=== PATIENT | female | born 1955 | race Caucasian/White ===

== ENCOUNTER 2016-05-01 06:38 | Day surgery (SDC) | payer MEDICARE, OTHER ==
[2016-04-27 11:21] VITALS: BMI 51.3
[~2016-05-01 06:38] MED LIST: LACTATED RINGERS 1,000 ML IV SCH; LIDOCAINE 1% 20 ML VIAL (10MG/ML) FOR IV START INTRADERMA PRN
[2016-05-01] MEDS ORDERED: LACTATED RINGERS 1,000 ML IV ONE (06:53)
[2016-05-01 07:07] VITALS: TEMP 98
[2016-05-01] MEDS ORDERED: PROPOFOL 10 MG/ML 20 ML VIAL IV ONE (08:15)
--- NOTE | 2016-05-01 08:31 | P.GSHP ---
History of Present Illness H&P Date: 05/01/16 Chief Complaint: Diverticulitis, screening colonoscopy This a 61-year-old female who presents today for colonoscopy. Patient's pain has History of diverticulitis. - Constitutional Constitutional: Reports as per HPI Past Medical History Past Medical History: Asthma, Cancer, COPD, Hypertension, Osteoarthritis (OA), Pneumonia, Seizure Disorder Additional Past Medical History / Comment(s): Diverticlitis with abd. pain, 2 weeks ago.Hx colon polyps. Basal cell CA.HX SEIZURE ON LT SIDE OF FACE(last seiz 2 yrs ago)/TRIGIMINAL NEURALGIA/CLUSTER REZA. O2 PRN."Pneumonia yearly". History of Any Multi-Drug Resistant Organisms: None Reported Past Surgical History: Appendectomy, Section, Cholecystectomy, Hysterectomy, Orthopedic Surgery Additional Past Surgical History / Comment(s): Multiple colonoscopies. Prior bronchoscopy. Skin CA removed. RT KNEE replacement, NECK FUSION,RT SHOULDER ROTATOR CUFF. Obie carpal tunnel, bone spurs removed from heels. Past Anesthesia/Blood Transfusion Reactions: Family History of Problems w/ Anesthesia Additional Past Anesthesia/Blood Transfusion Reaction / Comment(s): MOTHER/ SISTER PONV Past Psychological History: Panic Disorder Smoking Status: Former smoker Past Alcohol Use History: None Reported Additional Past Alcohol Use History / Comment(s): quit smoking 12/2014, smoked 1PPD for about 41 yrs. Started smoking 1975. Past Drug Use History: None Reported - Past Family History Mother Family Medical History: Cancer Additional Family Medical History / Comment(s): Skin CA. Father Family Medical History: Cancer Additional Family Medical History / Comment(s): Colon CA. Medications and Allergies Home Medications Medication Instructions Recorded Confirmed Type Albuterol Inhaler [Ventolin Hfa 2 puff INHALATION Q4HR PRN 12/08/13 05/01/16 History Inhaler] Fluticasone/Salmeterol [Advair 2 puff INHALATION BID 12/08/13 05/01/16 History 500-50 Diskus] Furosemide [Lasix] 20 mg PO Q8HR PRN 12/08/13 05/01/16 History Ipratropium/Albuterol Sulfate 1 applicate INHALATION Q4HR PRN 12/08/13 05/01/16 History [Duoneb 0.5 mg-3 mg/3 ml Soln] ALPRAZolam [Xanax] 0.5 mg PO Q8HR PRN 04/27/16 05/01/16 History Budesonide [Pulmicort Flexhaler] 2 puff INHALATION BID 04/27/16 05/01/16 History Tiotropium 18 Mcg/Puff [Spiriva] 1 puff INHALATION QAM 04/27/16 05/01/16 History Allergies Allergy/AdvReac Type Severity Reaction Status Date / Time aspirin Allergy Swelling Verified 05/01/16 06:59 azithromycin Allergy Rash/Hives Verified 05/01/16 06:59 [From Zithromax Z-Dimitris] cefuroxime axetil Allergy SEVERE Verified 05/01/16 06:59 [From Ceftin] YEAST INFECTION metoprolol Allergy Swelling Verified 05/01/16 06:59 Surgical - Exam Vital Signs Temp Pulse Resp BP Pulse Ox 98.0 F 95 16 122/79 95 05/01/16 07:03 05/01/16 07:03 05/01/16 07:03 05/01/16 07:03 05/01/16 07:03 - General well developed, no distress - Eyes PERRL - ENT normal pinna - Neck no masses - Respiratory normal expansion - Cardiovascular Rhythm: regular - Abdomen Abdomen: soft, non tender Assessment and Plan Plan: History of diverticulitis. We'll perform screening colonoscopy.
--- NOTE | 2016-05-01 08:43 | P.OP ---
Date of Procedure: 05/01/16 Preoperative Diagnosis: Screening colonoscopy Postoperative Diagnosis: Diverticulitis Rectal polyp Procedure(s) Performed: Colonoscopy Anesthesia: MAC Surgeon: Mike Romo Pathology: other (Rectal polyp) Condition: stable Disposition: PACU Description of Procedure: The patient's placed on the endoscopy table in the lateral position. She received IV sedation. Digital rectal exam was performed which revealed external hemorrhoids. The flexible colonoscope was then placed patient anus and passed throughout the entire colon. The ileocecal valve was visualized. The cecum, ascending and transverse colon appeared normal. In the descending and sigmoid colon there is extensive diverticular changes. In the sigmoid colon there is evidence of diverticulitis. This area is biopsied. The scope was then brought back the rectum and a small polyp was seen. The scope was then withdrawn and internal and external hemorrhoids were noted. Scope was withdrawn for patient.
[2016-05-01 08:47] VITALS: RESP 18
[2016-05-01 09:23] VITALS: BP 136/89; PULSE 95
== END 2016-05-01 09:40 | disposition home or self-care (01) ==
LOC: ORWHC2ENDO 06:38
PROVIDERS: ATTEND Surgery
DX: Z12.11 Encounter for screening for malignant neoplasm of colon (principal); K62.1 Rectal polyp; K57.92 Diverticulitis of intestine, part unspecified, without perforation or abscess without bleeding; K64.8 Other hemorrhoids; K64.4 Residual hemorrhoidal skin tags; J44.9 Chronic obstructive pulmonary disease, unspecified; J45.909 Unspecified asthma, uncomplicated; Z87.891 Personal history of nicotine dependence; F41.0 Panic disorder [episodic paroxysmal anxiety]; Z79.51 Long term (current) use of inhaled steroids; Z79.899 Other long term (current) drug therapy; Z88.6 Allergy status to analgesic agent; Z88.1 Allergy status to other antibiotic agents; E66.01 Morbid (severe) obesity due to excess calories; Z68.43 Body mass index [BMI] 50.0-59.9, adult
CPT/HCPCS: 45380; 88305

== ENCOUNTER 2016-08-02 05:48 | Inpatient (IN) | payer MEDICARE, OTHER ==
[2016-07-31 11:07] VITALS: BMI 53.1
[~2016-08-02 05:48] MED LIST changes: +DEXAMETHASONE SOD PHOSPHATE 10 MG/ML 1 ML VIAL IV ONE; +HEPARIN SODIUM,PORCINE 5,000 UNIT/ML 1 ML VIAL SQ ONE; -LACTATED RINGERS 1,000 ML IV SCH; +MIDAZOLAM 2 MG/2 ML VIAL IV PRN; +ONDANSETRON 4 MG/2 ML VIAL IVP ONE; +SCOPOLAMINE 1.5MG/72HR PATCH TRANSDERM ONE; +ceFAZolin 3 GM in SODIUM CHLORIDE 0.9% 100 ML IVPB ONE; +metroNIDAZOLE-NS PMX 500 MG in SALINE 1 100ML.BAG IVPB ONE
[2016-08-02] MEDS: LACTATED RINGERS 1,000 ML IV SCH (06:33)
[2016-08-02 06:38] LABS: Glucose,Whole Blood 88 mg/dL (75-99)
[2016-08-02] MEDS ORDERED: HYDROCORTISONE SUCCINATE 100 MG/2 ML VIAL IV ONE (07:00)
--- NOTE | 2016-08-02 07:51 | P.GSHP ---
History of Present Illness H&P Date: 08/02/16 Chief Complaint: Diverticulitis This is a 61-year-old female who presents today for low anterior resection. Patient's had issues with chronic diverticulitis. She is aware the risks of surgery including colostomy, bleeding and wound infection. - Constitutional Constitutional: Reports as per HPI Past Medical History Past Medical History: Asthma, Cancer, COPD, Hypertension, Osteoarthritis (OA), Pneumonia, Seizure Disorder Additional Past Medical History / Comment(s): DIVERTICULITIS. Hx colon polyps. SKIN Basal cell CA FACE. HX SEIZURE ON LT SIDE OF FACE (last seiz 2 yrs ago)/ TRIGIMINAL NEURALGIA/CLUSTER REZA. O2 2L NC AT HS, AND DAILY PRN. "Pneumonia yearly," LAST 06/22/16. TO ER 07/29/16 D/T INCR COPD SX, ON PO AB AND STEROID - PATIENT CALLED AND REPORTED THIS TO DR POWELL'S OFFICE. History of Any Multi-Drug Resistant Organisms: None Reported Past Surgical History: Appendectomy, Section, Cholecystectomy, Hysterectomy, Orthopedic Surgery Additional Past Surgical History / Comment(s): Multiple colonoscopies. Bronchoscopy. Skin CA removed. RT KNEE Replacement. NECK FUSION. RT SHOULDER ROTATOR CUFF. Obie CTR. Bone spurs removed from Heels. LT 5TH TOE AMPUTATED. Past Anesthesia/Blood Transfusion Reactions: No Reported Reaction, Family History of Problems w/ Anesthesia Additional Past Anesthesia/Blood Transfusion Reaction / Comment(s): MOTHER/ SISTER PONV Past Psychological History: Panic Disorder Smoking Status: Former smoker Past Alcohol Use History: None Reported Additional Past Alcohol Use History / Comment(s): Quit smoking 12/2014, smoked 1PPD for about 41 yrs. Started smoking 1975. Past Drug Use History: None Reported - Past Family History Mother Family Medical History: Cancer Additional Family Medical History / Comment(s): Skin CA, MELANOMA. Father Family Medical History: Cancer Additional Family Medical History / Comment(s): Colon CA. Medications and Allergies Home Medications Medication Instructions Recorded Confirmed Type Albuterol Inhaler [Ventolin Hfa 2 puff INHALATION Q4HR PRN 12/08/13 08/02/16 History Inhaler] Fluticasone/Salmeterol [Advair 2 puff INHALATION BID 12/08/13 08/02/16 History 500-50 Diskus] Furosemide [Lasix] 20 mg PO Q8HR PRN 12/08/13 08/02/16 History Ipratropium/Albuterol Sulfate 1 applicate INHALATION Q4HR PRN 12/08/13 08/02/16 History [Duoneb 0.5 mg-3 mg/3 ml Soln] ALPRAZolam [Xanax] 0.5 mg PO Q8HR PRN 04/27/16 08/02/16 History Budesonide [Pulmicort Flexhaler] 2 puff INHALATION BID 04/27/16 08/02/16 History Tiotropium 18 Mcg/Puff [Spiriva] 1 puff INHALATION QAM 04/27/16 08/02/16 History Doxycycline Hyclate [Vibramycin] 100 mg PO BID 07/31/16 08/02/16 History predniSONE 60 mg PO DAILY 07/31/16 08/02/16 History Allergies Allergy/AdvReac Type Severity Reaction Status Date / Time aspirin Allergy Swelling Verified 08/02/16 06:06 azithromycin Allergy Rash/Hives Verified 08/02/16 06:06 [From Zithromax Z-Dimitris] cefuroxime axetil Allergy SEVERE Verified 08/02/16 06:06 [From Ceftin] YEAST INFECTION metoprolol Allergy Swelling Verified 08/02/16 06:06 Surgical - Exam Vital Signs Temp Pulse Resp BP Pulse Ox 97.9 F 98 16 144/78 94 L 08/02/16 06:43 08/02/16 06:43 08/02/16 06:43 08/02/16 06:43 08/02/16 06:43 - General well developed, no distress - Eyes PERRL - ENT normal pinna - Neck no masses - Respiratory normal expansion - Cardiovascular Rhythm: regular - Abdomen Left lower quadrant tenderness Abdomen: soft Results - Labs 08/02/16 06:27 Diabetes panel 08/02/16 Range/Units 06:27 Potassium 3.6 (3.5-5.1) mmol/L Pituitary panel 08/02/16 Range/Units 06:27 Potassium 3.6 (3.5-5.1) mmol/L Adrenal panel 08/02/16 Range/Units 06:27 Potassium 3.6 (3.5-5.1) mmol/L Assessment and Plan Plan: Roddick diverticulitis. We'll perform a low anterior resection.
[2016-08-02] MEDS ORDERED: ePHEDrine 50 MG/ML 1 ML AMP ONE (07:56)
[2016-08-02] MEDS ORDERED: fentaNYL (PF) 50 MCG/ML 2 ML AMP ONE (07:56)
[2016-08-02] MEDS ORDERED: PROPOFOL 10 MG/ML 20 ML VIAL IV ONE (07:56)
[2016-08-02] MEDS ORDERED: MIDAZOLAM 2 MG/2 ML VIAL ONE (07:56)
[2016-08-02] MEDS ORDERED: NEOSTIGMINE 1 MG/ML 10 ML VIAL ONE (07:56)
[2016-08-02] MEDS ORDERED: SUCCINYLCHOLINE CHLORIDE VIAL 200 MG/10 ML VIAL IV ONE (07:56)
[2016-08-02] MEDS ORDERED: DOXAPRAM 20 MG/ML 20 ML VIAL IV ONE (07:56)
[2016-08-02] MEDS ORDERED: GLYCOPYRROLATE 0.2 MG/ML 2 ML VIAL ONE (07:56)
[2016-08-02] MEDS ORDERED: LIDOCAINE 1% INJ 10MG/ML (20 ML MDV) ONE (07:56)
[2016-08-02] MEDS ORDERED: ROCURONIUM BROMIDE 10 MG/ML 10 ML VIAL IV ONE (07:56)
[2016-08-02] MEDS ORDERED: LACTATED RINGERS 1,000 ML IV ONE ×3 (09:08→11:42)
[2016-08-02] MEDS ORDERED: BENZOCAINE/MENTHOL LOZENG 1 EACH LOZENGE MUCOUS MEM PRN (10:25)
[2016-08-02] MEDS ORDERED: METOCLOPRAMIDE 5 MG/ML 2 ML VIAL IVP PRN (10:25)
[2016-08-02] MEDS ORDERED: ONDANSETRON 4 MG/2 ML VIAL IVP PRN (10:25)
[2016-08-02] MEDS ORDERED: KETOROLAC 30 MG/ML 1 ML VIAL IVP PRN (10:25)
[2016-08-02] MEDS ORDERED: LEVALBUTEROL NEB 1.25 MG/3 ML AMP INHALATION ONE (11:12)
[2016-08-02] MEDS ORDERED: KETOROLAC 30 MG/ML 1 ML VIAL IVP ONE (11:36)
[2016-08-02] MEDS: HYDROmorphone 1 MG/ML 1 ML SYRINGE IVP PRN ×5 (11:55→21:33)
[2016-08-02 13:47] LABS: Basophils % (A) 0 %; CH 27.8; CHCM 30.6; Eosinophils # (A) 0.2 k/uL (0-0.7); Eosinophils % (A) 1 %; HCT 44.2 % (34.0-46.0); HDW 2.35; HGB 13.5 gm/dL (11.4-16.0); Hypochromasia Slight; Luc # (Auto) 0.09; Luc % (Auto) 1; Lymphocytes # (A) 0.6 k/uL (1.0-4.8); Lymphocytes % (A) 3 %; MCH 27.8 pg (25.0-35.0); MCHC 30.5 g/dL (31.0-37.0); MCV 91.1 fL (80.0-100.0); Mean Platelet Volume 6.3; Monocytes # (A) 0.6 k/uL (0-1.0); Monocytes % (A) 3 %; Neutrophils # (A) 14.8 k/uL (1.3-7.7); Neutrophils % (A) 92 %; RBC 4.85 m/uL (3.80-5.40); RDW 14.6 % (11.5-15.5); WBC 16.2 k/uL (3.8-10.6); WBC (Perox) 17.43
[2016-08-02 14:05] LABS: Anion Gap 7 mmol/L; Blood Urea Nitrogen 16 mg/dL (7-17); Calcium 8.6 mg/dL (8.4-10.2); Carbon Dioxide 29 mmol/L (22-30); Chloride 104 mmol/L (98-107); Glucose 162 mg/dL (74-99); Non-African American GFR(MDRD) >60 (>60 ml/min/1.73 sqM); Potassium 3.8 mmol/L (3.5-5.1); Sodium 140 mmol/L (137-145)
[2016-08-02] MEDS: D5-0.45% NACL WITH KCL 20MEQ/L 1,000 ML IV SCH (16:02)
[2016-08-02] MEDS: ALBUTEROL NEBULIZED 2.5 MG/3 ML INHALATION PRN (21:28)
[2016-08-02] MEDS: FAMOTIDINE 20 MG/2 ML VIAL IV SCH (21:33)
[2016-08-02] MEDS: ALVIMOPAN 12 MG CAPSULE PO SCH (21:33)
[2016-08-03] MEDS: LACTATED RINGERS 1,000 ML IV SCH (00:10)
[2016-08-03] MEDS: HYDROmorphone 1 MG/ML 1 ML SYRINGE IVP PRN ×5 (02:23→20:05)
[2016-08-03] MEDS: ALBUTEROL NEBULIZED 2.5 MG/3 ML INHALATION PRN ×2 (02:34→09:00)
[2016-08-03] MEDS: D5-0.45% NACL WITH KCL 20MEQ/L 1,000 ML IV SCH ×2 (04:06→11:52)
[2016-08-03] MEDS: FAMOTIDINE 20 MG/2 ML VIAL IV SCH ×2 (07:20→22:22)
[2016-08-03] MEDS: ALVIMOPAN 12 MG CAPSULE PO SCH ×2 (07:20→22:23)
[2016-08-03 09:50] LABS: Basophils % (A) 0 %; CH 27.7; Eosinophils # (A) 0.1 k/uL (0-0.7); Eosinophils % (A) 1 %; HCT 40.3 % (34.0-46.0); HDW 2.41; HGB 12.8 gm/dL (11.4-16.0); Hypochromasia Slight; Luc # (Auto) 0.18; Luc % (Auto) 1; Lymphocytes # (A) 1.2 k/uL (1.0-4.8); Lymphocytes % (A) 9 %; MCH 28.6 pg (25.0-35.0); MCHC 31.8 g/dL (31.0-37.0); Mean Platelet Volume 6.8; Monocytes # (A) 0.9 k/uL (0-1.0); Monocytes % (A) 6 %; Neutrophils # (A) 10.8 k/uL (1.3-7.7); Neutrophils % (A) 82 %; RBC 4.48 m/uL (3.80-5.40); RDW 14.6 % (11.5-15.5); WBC 13.2 k/uL (3.8-10.6); WBC (Perox) 13.79
[2016-08-03 10:01] LABS: Anion Gap 7 mmol/L; Blood Urea Nitrogen 15 mg/dL (7-17); Calcium 8.8 mg/dL (8.4-10.2); Carbon Dioxide 29 mmol/L (22-30); Chloride 101 mmol/L (98-107); Glucose 119 mg/dL (74-99); Non-African American GFR(MDRD) >60 (>60 ml/min/1.73 sqM); Potassium 4.4 mmol/L (3.5-5.1); Sodium 137 mmol/L (137-145)
[2016-08-03] MEDS ORDERED: FUROSEMIDE 20 MG TAB PO PRN (10:55)
[2016-08-03] MEDS ORDERED: ALPRAZolam 0.5 MG TAB PO PRN (10:55)
[2016-08-03] MEDS ORDERED: IPRATROPIUM-ALBUTEROL 3 ML NEB INHALATION PRN (10:57)
--- NOTE | 2016-08-03 11:06 | P.CONS ---
History of Present Illness - Reason for Consult Consult date: 08/03/16 Medical management Requesting physician: Mike Romo - Chief Complaint Status post lower anterior resection - History of Present Illness This is a 61-year-old female with a known history of COPD, hypertension, seizure disorder, diverticulitis and recent bronchitis. Patient is postop day # 1 status post lower anterior resection. She tolerated surgery well. She's currently on a clear liquid diet. Denies any nausea vomiting. Abdominal pain is controlled. Patient reports having some shortness of breath this morning did require her breathing treatment. When she received a breathing treatment she is feeling better. She does use oxygen at bedtime. She had been under treatment for a bronchitis she had gone to the ER at [facility] on last Sunday. They had sent her home with a prednisone taper and doxycycline. Patient stated that she took 3 days of treatment and then stopped. She denies any chest pain. Denies any nausea or vomiting. She does have some cough is nonproductive. Chest x-ray has been ordered. No bowel movement yet. Patient reports no gas. Denies any nausea or vomiting. Marcano catheter in place. Review of Systems Please refer to HPI otherwise unremarkable Past Medical History Past Medical History: Asthma, Cancer, COPD, Hypertension, Osteoarthritis (OA), Pneumonia, Seizure Disorder Additional Past Medical History / Comment(s): DIVERTICULITIS. Hx colon polyps. SKIN Basal cell CA FACE. HX SEIZURE ON LT SIDE OF FACE (last seiz 2 yrs ago)/ TRIGIMINAL NEURALGIA/CLUSTER REZA. O2 2L NC AT HS, AND DAILY PRN. "Pneumonia yearly," LAST 06/22/16. TO ER 07/29/16 D/T INCR COPD SX, ON PO AB AND STEROID - PATIENT CALLED AND REPORTED THIS TO DR ROMO'S OFFICE. History of Any Multi-Drug Resistant Organisms: None Reported Past Surgical History: Appendectomy, Section, Cholecystectomy, Hysterectomy, Orthopedic Surgery Additional Past Surgical History / Comment(s): Multiple colonoscopies. Bronchoscopy. Skin CA removed. RT KNEE Replacement. NECK FUSION. RT SHOULDER ROTATOR CUFF. Obie CTR. Bone spurs removed from Heels. LT 5TH TOE AMPUTATED. Past Anesthesia/Blood Transfusion Reactions: No Reported Reaction, Family History of Problems w/ Anesthesia Additional Past Anesthesia/Blood Transfusion Reaction / Comm: MOTHER/SISTER PONV Past Psychological History: Panic Disorder Smoking Status: Former smoker Past Alcohol Use History: None Reported Additional Past Alcohol Use History / Comment(s): Quit smoking 12/2014, smoked 1PPD for about 41 yrs. Started smoking 1975. Past Drug Use History: None Reported - Past Family History Mother Family Medical History: Cancer Additional Family Medical History / Comment(s): Skin CA, MELANOMA. Father Family Medical History: Cancer Additional Family Medical History / Comment(s): Colon CA. Medications and Allergies Home Medications Medication Instructions Recorded Confirmed Type Albuterol Inhaler [Ventolin Hfa 2 puff INHALATION RT-Q4H PRN 12/08/13 08/02/16 History Inhaler] Fluticasone/Salmeterol [Advair 2 puff INHALATION RT-BID 12/08/13 08/02/16 History 500-50 Diskus] Furosemide [Lasix] 20 mg PO Q8HR PRN 12/08/13 08/02/16 History Ipratropium/Albuterol Sulfate 3 ml INHALATION RT-Q4H PRN 12/08/13 08/02/16 History [Duoneb 0.5 mg-3 mg/3 ml Soln] ALPRAZolam [Xanax] 0.5 mg PO Q8HR PRN 04/27/16 08/02/16 History Budesonide [Pulmicort Flexhaler] 2 puff INHALATION RT-BID 04/27/16 08/02/16 History Tiotropium 18 Mcg/Puff [Spiriva] 1 puff INHALATION RT-DAILY 04/27/16 08/02/16 History Doxycycline Hyclate [Vibramycin] 100 mg PO BID 07/31/16 08/02/16 History predniSONE 60 mg PO DAILY 07/31/16 08/02/16 History Allergies Allergy/AdvReac Type Severity Reaction Status Date / Time aspirin Allergy Swelling Verified 08/02/16 06:06 azithromycin Allergy Rash/Hives Verified 08/02/16 06:06 [From Zithromax Z-Dimitris] cefuroxime axetil Allergy SEVERE Verified 08/02/16 06:06 [From Ceftin] YEAST INFECTION metoprolol Allergy Swelling Verified 08/02/16 06:06 Physical Exam Vitals: Vital Signs Temp Pulse Pulse Pulse Resp BP Pulse Ox 08/03/16 09:15 84 08/03/16 09:00 84 08/03/16 08:00 83 79 16 08/03/16 07:35 98.5 F 79 16 135/71 92 L 08/03/16 03:37 83 16 08/03/16 02:45 84 08/03/16 02:36 80 08/03/16 01:00 98.2 F 83 16 134/59 94 L 08/03/16 00:00 87 24 08/02/16 22:42 97.7 F 87 24 122/66 94 L 08/02/16 21:37 84 08/02/16 21:29 83 08/02/16 20:00 102 H 14 08/02/16 12:15 102 H 14 113/57 95 08/02/16 12:00 101 H 16 117/55 95 08/02/16 11:46 106 H 16 122/59 98 08/02/16 11:30 106 H 24 137/64 100 08/02/16 11:15 120 H 24 137/72 99 08/02/16 11:00 126 H 24 132/89 99 Intake and Output 08/02/16 08/03/16 08/03/16 22:59 06:59 14:59 Intake Total 440 1000 Output Total 400 200 Balance 40 800 Intake: Intake, IV Titration 440 1000 Amount D5-0.45% NaCl with KCl 440 1000 20Meq/l 1,000 ml @ 125 mls/hr IV .Q8H [facility] Rx#: [id number] Output: Urine 400 200 Uretheral (Marcano) 300 Other: Voiding Method Indwelling Catheter Indwelling Catheter Indwelling Catheter Weight 136.07 kg 136.07 kg Head normocephalic Neck supple Lungs coarse breath sounds at bases Heart regular rate and rhythm S1-S2, no rub or gallop Abdomen is soft abdominal binder in place with drainage tube Extremities no edema Neuro alert and orientated to 3 Results CBC & Chem 7: 08/03/16 09:35 08/03/16 09:35 Labs: Abnormal Lab Results - Last 24 Hours (Table) 08/02/16 08/02/16 08/03/16 Range/Units 13:33 13:33 09:35 WBC 16.2 H 13.2 H (3.8-10.6) k/uL MCHC 30.5 L (31.0-37.0) g/dL Neutrophils # 14.8 H 10.8 H (1.3-7.7) k/uL Lymphocytes # 0.6 L (1.0-4.8) k/uL Glucose 162 H (74-99) mg/dL 08/03/16 Range/Units 09:35 WBC (3.8-10.6) k/uL MCHC (31.0-37.0) g/dL Neutrophils # (1.3-7.7) k/uL Lymphocytes # (1.0-4.8) k/uL Glucose 119 H (74-99) mg/dL Assessment and Plan Plan: 1. Postop day #1 status post lower anterior resection for diverticulitis. Currently on clear liquid diet. Continue with pain control. Followed closely by surgery 2. History of COPD with recent bronchitis and exacerbation. Patient completed 3 days of her treatment. This morning she had worsening shortness of breath with improvement after nebulizer treatment. Possibly mild COPD exacerbation. Check chest x-ray. Change nebulizer to 4 times a day and as needed. Resume Pulmicort 3. History of essential hypertension: Blood pressures are stable. Patient reports been off of blood pressure medications for a while now 4. History of trigeminal neuralgia 5. Leukocytosis: Possibly reactive to surgery as well as being on prednisone recently. We'll monitor. Follow up on chest x-ray. 6. Generalized anxiety disorder and panic disorder. Resume Xanax GI prophylaxis Pepcid and DVT prophylaxis subcu heparin Thank you for this consultation. We will continue to follow along with you. Time with Patient: Greater than 30 (Greater than 50% of the total time spent in counseling and coordination of care.I performed an examination of the patient and discussed their management with the physician Oven Attendant. I have reviewed the Physician Oven Attendant's notes and agree with the documented findings and plan of care)
[2016-08-03] MEDS: IPRATROPIUM-ALBUTEROL 3 ML NEB INHALATION SCH ×3 (13:45→20:40)
--- NOTE | 2016-08-03 14:32 | XR ---
EXAMINATION TYPE: XR chest 2V DATE OF EXAM: 08/03/2016 1:31 PM COMPARISON: Prior chest x-ray 05 February 2011 HISTORY: Shortness of breath, asthma TECHNIQUE: Frontal and lateral views of the chest are obtained. FINDINGS: There is no pleural effusion, or pneumothorax seen. The cardiac silhouette size is stable , accentuation of heart size may be due to rotation. Lung volumes are low, minimal patchy basilar den sity is present. Postop change noted to the cervical spine. The osseous structures are intact. IMPRESSION: There may be some basilar atelectasis. Difficult to exclude minimal effusion, follow-up as indicated
--- NOTE | 2016-08-03 14:46 | P.PN ---
Subjective Principal diagnosis: Chronic diverticulitis Patient is a 61-year-old female, patient of Dr. Clark in the outpatient setting , with a medical history significant for chronic diverticulitis presenting to the hospital for elective low anterior resection. Patient tolerated procedure well. Patient is evaluated on the surgical unit where she is postop day #1. Patient complains of mild shortness of breath and nonproductive cough. Denies chills, fevers, nausea, vomiting, or chest pain. Denies flatus or bowel movement. Tolerating a clear liquid diet. Per nursing staff, epidural had to be pulled as it had come out. Marcano catheter in place with adequate urine output. Afebrile. WBC decreased to 13.2. Chest x-ray with possible basilar atelectasis, difficult to exclude minimal effusion. Objective - Vital Signs Vital signs: Vital Signs Temp 98.5 F 08/03/16 07:35 Pulse 84 08/03/16 09:15 Resp 16 08/03/16 08:00 BP 135/71 08/03/16 07:35 Pulse Ox 92 L 08/03/16 07:35 Intake & Output 08/02/16 08/03/16 08/03/16 18:59 06:59 18:59 Intake Total 2950 1440 400 Output Total 800 600 Balance 2150 840 400 Weight 136.07 kg 136.07 kg Intake: IV 2700 400 Lactated Ringers 1,000 ml 400 @ 20 mls/hr IV .Q24H [facility] Rx#:[id number] Intake, IV Titration 250 1440 Amount D5-0.45% NaCl with KCl 250 1440 20Meq/l 1,000 ml @ 125 mls/hr IV .Q8H [facility] Rx#: [id number] Output: Urine 200 600 Uretheral (Marcano) 300 Estimated Blood Loss 600 Other: Voiding Method Indwelling Catheter Indwelling Catheter Indwelling Catheter - Exam GENERAL: Pt awake and alert, well-appearing, well-nourished, and in no acute distress. LUNGS: Breath sounds with coarse rhonchi to auscultation bilaterally. HEART: Heart S1, S2, no S3 or S4. Regular rate and rhythm. No murmurs, rubs or gallops. ABDOMEN: Soft, nontender, nondistended, normoactive bowel sounds. No guarding, no rebound. No masses or organomegaly appreciated. NEUROLOGICAL: Pt oriented x 3. - Labs CBC & Chem 7: 08/03/16 09:35 08/03/16 09:35 Labs: Abnormal Lab Results - Last 24 Hours (Table) 08/03/16 08/03/16 Range/Units 09:35 09:35 WBC 13.2 H (3.8-10.6) k/uL Neutrophils # 10.8 H (1.3-7.7) k/uL Glucose 119 H (74-99) mg/dL Assessment and Plan Plan: Impression: 1. Chronic diverticulitis status post low anterior resection on 08/02/2016. 2. Basilar atelectasis. 3. Leukocytosis. Plan: 1. Continue to monitor patient. Continue clear liquid diet. Continue supportive treatment and pain management. Continue IV hydration. Continue incentive spirometry 10 times now while awake. Continue GI and DVT prophylaxis. Continue to follow medical team. Repeat CBC and BMP in a.m. The above impression and plan have been discussed and directed by Dr. Romo. Kurtis LAUREN acting as scribe for Dr. Romo.
[2016-08-03] MEDS ORDERED: NON-FORMULARY DRUG (Budesonide [Pulmicort Flexhaler] 2 PUFF) INHALATION SCH (20:00)
[2016-08-03] MEDS: SYMBICORT 160-4.5 MCG INHALER INHALATION SCH (20:40)
[2016-08-03] MEDS: HEPARIN SODIUM,PORCINE 5,000 UNIT/ML 1 ML VIAL SQ SCH (22:21)
[2016-08-03] MEDS: guaiFENesin 600 MG TABLET.ER PO SCH (22:22)
[2016-08-03] MEDS: DOXYCYCLINE 50 MG CAP PO SCH (22:23)
[2016-08-04] MEDS: IPRATROPIUM-ALBUTEROL 3 ML NEB INHALATION SCH ×7 (00:30→20:33)
[2016-08-04] MEDS: HYDROcodone/APAP 7.5-325MG 1 EACH TAB PO PRN ×2 (04:08→13:29)
[2016-08-04] MEDS: D5-0.45% NACL WITH KCL 20MEQ/L 1,000 ML IV SCH ×4 (04:12→20:20)
[2016-08-04 06:15] LABS: Basophils % (A) 0 %; CH 28.1; CHCM 31.9; Eosinophils # (A) 0.2 k/uL (0-0.7); Eosinophils % (A) 2 %; HCT 39.3 % (34.0-46.0); HDW 2.55; HGB 12.6 gm/dL (11.4-16.0); Luc # (Auto) 0.11; Luc % (Auto) 1; Lymphocytes # (A) 2.1 k/uL (1.0-4.8); Lymphocytes % (A) 18 %; MCH 28.4 pg (25.0-35.0); MCHC 32.1 g/dL (31.0-37.0); MCV 88.5 fL (80.0-100.0); Mean Platelet Volume 7.2; Monocytes # (A) 0.8 k/uL (0-1.0); Monocytes % (A) 7 %; Neutrophils # (A) 8.7 k/uL (1.3-7.7); Neutrophils % (A) 73 %; RBC 4.44 m/uL (3.80-5.40); RDW 14.4 % (11.5-15.5); WBC 11.9 k/uL (3.8-10.6); WBC (Perox) 12.69
[2016-08-04 06:45] LABS: ALT 27 U/L (9-52); AST 15 U/L (14-36); Alkaline Phosphatase 49 U/L (38-126); Anion Gap 7 mmol/L; Blood Urea Nitrogen 11 mg/dL (7-17); Calcium 8.9 mg/dL (8.4-10.2); Carbon Dioxide 29 mmol/L (22-30); Chloride 103 mmol/L (98-107); Glucose 89 mg/dL (74-99); Non-African American GFR(MDRD) >60 (>60 ml/min/1.73 sqM); Potassium 4.2 mmol/L (3.5-5.1); Sodium 139 mmol/L (137-145); Total Bilirubin 0.6 mg/dL (0.2-1.3); Total Protein 5.8 g/dL (6.3-8.2)
[2016-08-04] MEDS ORDERED: TIOTROPIUM 18 MCG/PUFF INHALER INHALATION SCH (08:00)
[2016-08-04] MEDS: SYMBICORT 160-4.5 MCG INHALER INHALATION SCH ×2 (08:01→19:40)
[2016-08-04] MEDS: ALVIMOPAN 12 MG CAPSULE PO SCH ×2 (08:49→20:14)
[2016-08-04] MEDS: DOXYCYCLINE 50 MG CAP PO SCH ×2 (08:49→20:14)
[2016-08-04] MEDS: HEPARIN SODIUM,PORCINE 5,000 UNIT/ML 1 ML VIAL SQ SCH ×2 (08:49→20:14)
[2016-08-04] MEDS: guaiFENesin 600 MG TABLET.ER PO SCH ×2 (08:49→20:13)
[2016-08-04] MEDS: FAMOTIDINE 20 MG/2 ML VIAL IV SCH ×2 (08:49→20:34)
--- NOTE | 2016-08-04 11:54 | P.PN ---
Subjective Postop day #2 status post left total anterior resection for diverticulitis. Patient's pain is controlled. She has been up and ambulating. She is complaining again that she did not get her breathing treatments on time. Chest x-ray completed yesterday showing atelectasis difficult to exclude fusion. Patient reports after breathing treatments or shortness breath has improved she was started again back on her doxycycline for her bronchitis treatment that she had started outpatient. Patient denies any nausea or vomiting currently on a clear liquid diet. She is not passed gas or bowel movement yet. Objective - Vital Signs Vital signs: Vital Signs Temp 98.6 F 08/04/16 07:00 Pulse 80 08/04/16 11:09 Resp 16 08/04/16 07:00 BP 158/79 08/04/16 07:00 Pulse Ox 92 L 08/04/16 07:00 Intake & Output 08/03/16 08/04/16 08/04/16 18:59 06:59 18:59 Intake Total 400 690 300 Output Total 1200 300 408 Balance -800 390 -108 Weight 136.07 kg 136.07 kg Intake: IV 400 Lactated Ringers 1,000 ml 400 @ 20 mls/hr IV .Q24H [facility] Rx#:[id number] Intake, IV Titration 690 Amount D5-0.45% NaCl with KCl 690 20Meq/l 1,000 ml @ 125 mls/hr IV .Q8H [facility] Rx#: [id number] Oral 300 Output: Drainage 8 Right Abdomen 8 Urine 1200 300 400 Uretheral (Marcano) 1200 400 Other: Voiding Method Indwelling Catheter Indwelling Catheter - Exam Head normocephalic Neck supple Lungs coarse breath sounds at bases Heart regular rate and rhythm S1-S2, no rub or gallop Abdomen is soft and abdominal binder in place positive bowel sounds Extremities no edema Neuro alert and orientated to 3 - Labs CBC & Chem 7: 08/04/16 06:06 08/04/16 06:06 Labs: Abnormal Lab Results - Last 24 Hours (Table) 08/04/16 08/04/16 Range/Units 06:06 06:06 WBC 11.9 H (3.8-10.6) k/uL Neutrophils # 8.7 H (1.3-7.7) k/uL Total Protein 5.8 L (6.3-8.2) g/dL Albumin 3.2 L (3.5-5.0) g/dL Assessment and Plan Plan: 1. Postop day #2 status post lower anterior resection for diverticulitis. Currently on clear liquid diet. Continue with pain control. Followed closely by surgery 2. Acute tracheobronchitis continue the doxycycline patient started outpatient. With mild COPD exacerbation continue nebulizer treatments. No need for steroids at this time. Chest x-ray revealing atelectasis. Encourage incentive spirometry use 3. History of essential hypertension: Blood pressures are stable. Patient reports been off of blood pressure medications for a while now 4. History of trigeminal neuralgia 5. Leukocytosis: Possibly reactive to surgery as well as being on prednisone recently. We'll monitor. Follow up on chest x-ray. 6. Generalized anxiety disorder and panic disorder. Resume Xanax GI prophylaxis Pepcid and DVT prophylaxis subcu heparin I performed an examination of the patient and discussed their management with the physician Conference Services Manager. I have reviewed the Physician Conference Services Manager's notes and agree with the documented findings and plan of care
[2016-08-04] MEDS: LACTATED RINGERS 1,000 ML IV SCH ×2 (16:46→20:21)
[2016-08-04] MEDS: HYDROmorphone 1 MG/ML 1 ML SYRINGE IVP PRN (17:36)
--- NOTE | 2016-08-04 18:09 | P.PN ---
Subjective Patient is a 61-year-old female, patient of Dr. Clark in the outpatient setting , with a medical history significant for chronic diverticulitis presenting to the hospital for elective low anterior resection. Patient tolerated procedure well. Patient is evaluated on the surgical unit where she is postop day #2. Patient complains of mild shortness of breath and nonproductive cough. Denies chills, fevers, nausea, vomiting, or chest pain. Denies flatus or bowel movement. Tolerating a clear liquid diet. Epidural has been discontinued. Marcano catheter in place with adequate urine output. Afebrile. WBC decreased to 11.9. Objective - Vital Signs Vital signs: Vital Signs Temp 98.2 F 08/04/16 15:00 Pulse 84 08/04/16 15:52 Resp 16 08/04/16 15:00 BP 142/73 08/04/16 15:00 Pulse Ox 94 L 08/04/16 15:00 Intake & Output 08/03/16 08/04/16 08/04/16 18:59 06:59 18:59 Intake Total 400 690 660 Output Total 1200 300 828 Balance -800 390 -168 Weight 136.07 kg 136.07 kg Intake: IV 400 Lactated Ringers 1,000 ml 400 @ 20 mls/hr IV .Q24H CHARLES Rx#:[id number] Intake, IV Titration 690 Amount D5-0.45% NaCl with KCl 690 20Meq/l 1,000 ml @ 125 mls/hr IV .Q8H CHARLES Rx#: [id number] Oral 660 Output: Drainage 28 Right Abdomen 28 Urine 1200 300 800 Uretheral (Marcano) 1200 400 Other: Voiding Method Indwelling Catheter Indwelling Catheter # Voids 1 - Exam GENERAL: Pt awake and alert, well-appearing, well-nourished, and in no acute distress. LUNGS: Breath sounds with coarse rhonchi to auscultation bilaterally. HEART: Heart S1, S2, no S3 or S4. Regular rate and rhythm. No murmurs, rubs or gallops. ABDOMEN: Soft, nontender, nondistended, normoactive bowel sounds. No guarding, no rebound. No masses or organomegaly appreciated. NEUROLOGICAL: Pt oriented x 3. - Labs CBC & Chem 7: 08/04/16 06:06 08/04/16 06:06 Labs: Abnormal Lab Results - Last 24 Hours (Table) 08/04/16 08/04/16 Range/Units 06:06 06:06 WBC 11.9 H (3.8-10.6) k/uL Neutrophils # 8.7 H (1.3-7.7) k/uL Total Protein 5.8 L (6.3-8.2) g/dL Albumin 3.2 L (3.5-5.0) g/dL Assessment and Plan Plan: Impression: 1. Chronic diverticulitis status post low anterior resection on 08/02/2016. 2. Basilar atelectasis. 3. Leukocytosis. Plan: 1. Continue to monitor patient. Continue clear liquid diet. Continue supportive treatment and pain management. Continue IV hydration. Continue incentive spirometry 10 times now while awake. Continue GI and DVT prophylaxis. Continue to follow medical team. Repeat CBC and BMP in a.m. The above impression and plan have been discussed and directed by Dr. Romo. Kurtis LAUREN acting as scribe for Dr. Romo.
[2016-08-05] MEDS: HYDROcodone/APAP 7.5-325MG 1 EACH TAB PO PRN ×4 (01:15→20:08)
[2016-08-05] MEDS: D5-0.45% NACL WITH KCL 20MEQ/L 1,000 ML IV SCH ×3 (01:15→16:08)
[2016-08-05 08:18] LABS: ALT 27 U/L (9-52); AST 22 U/L (14-36); Alkaline Phosphatase 44 U/L (38-126); Anion Gap 6 mmol/L; Blood Urea Nitrogen 6 mg/dL (7-17); Calcium 8.7 mg/dL (8.4-10.2); Carbon Dioxide 26 mmol/L (22-30); Chloride 107 mmol/L (98-107); Glucose 94 mg/dL (74-99); Non-African American GFR(MDRD) >60 (>60 ml/min/1.73 sqM); Potassium 4.2 mmol/L (3.5-5.1); Sodium 139 mmol/L (137-145); Total Bilirubin 0.6 mg/dL (0.2-1.3); Total Protein 5.4 g/dL (6.3-8.2)
[2016-08-05 08:19] LABS: Basophils % (A) 0 %; CHCM 31.4; Eosinophils # (A) 0.4 k/uL (0-0.7); Eosinophils % (A) 3 %; HCT 38.1 % (34.0-46.0); HDW 2.47; HGB 11.9 gm/dL (11.4-16.0); Hypochromasia Slight; Luc # (Auto) 0.07; Luc % (Auto) 1; Lymphocytes # (A) 1.3 k/uL (1.0-4.8); Lymphocytes % (A) 11 %; MCHC 31.3 g/dL (31.0-37.0); MCV 89.5 fL (80.0-100.0); Mean Platelet Volume 6.9; Monocytes # (A) 0.7 k/uL (0-1.0); Monocytes % (A) 6 %; Neutrophils # (A) 8.8 k/uL (1.3-7.7); Neutrophils % (A) 79 %; RBC 4.25 m/uL (3.80-5.40); RDW 14.4 % (11.5-15.5); WBC 11.3 k/uL (3.8-10.6)
[2016-08-05] MEDS: guaiFENesin 600 MG TABLET.ER PO SCH ×2 (08:26→20:08)
[2016-08-05] MEDS: FAMOTIDINE 20 MG/2 ML VIAL IV SCH (08:26)
[2016-08-05] MEDS: ALVIMOPAN 12 MG CAPSULE PO SCH ×2 (08:26→20:08)
[2016-08-05] MEDS: DOXYCYCLINE 50 MG CAP PO SCH ×2 (08:26→20:07)
[2016-08-05] MEDS: HEPARIN SODIUM,PORCINE 5,000 UNIT/ML 1 ML VIAL SQ SCH ×2 (08:26→20:08)
[2016-08-05] MEDS: IPRATROPIUM-ALBUTEROL 3 ML NEB INHALATION SCH ×4 (08:40→18:58)
[2016-08-05] MEDS: SYMBICORT 160-4.5 MCG INHALER INHALATION SCH ×2 (08:40→18:58)
[2016-08-05 10:05] LABS: Manual Review Performed
--- NOTE | 2016-08-05 10:55 | P.PN ---
Subjective Patient is doing well today. She is requesting her diet to be advanced. Objective - Vital Signs Vital signs: Vital Signs Temp 98.4 F 08/05/16 07:00 Pulse 88 08/05/16 08:51 Resp 16 08/05/16 07:00 BP 141/83 08/05/16 07:00 Pulse Ox 95 08/05/16 08:41 Intake & Output 08/04/16 08/05/16 08/05/16 18:59 06:59 18:59 Intake Total 660 1250 Output Total 828 Balance -168 1250 Intake: Intake, IV Titration 1000 Amount D5-0.45% NaCl with KCl 1000 20Meq/l 1,000 ml @ 125 mls/hr IV .Q8H CHARLES Rx#: [id number] Oral 660 250 Output: Drainage 28 Right Abdomen 28 Urine 800 Uretheral (Marcano) 400 Other: Voiding Method Indwelling Catheter Toilet # Voids 1 4 - Exam General: The patient is awake and alert, in no distress Eye: there is normal conjunctiva bilaterally. Neck: The neck is supple, there is no JVD. Cardiovascular: Normal S1-S2, no S3-S4, no murmurs. Respiratory: Lungs clear to auscultation bilaterally Gastrointestinal: Abdomen is soft, nontender Musculoskeletal: There is no pedal edema. Neurological:. Speech is normal. Skin: Skin is warm and dry - Labs CBC & Chem 7: 08/05/16 07:29 08/05/16 07:29 Labs: Abnormal Lab Results - Last 24 Hours (Table) 08/05/16 08/05/16 Range/Units 07:29 07:29 WBC 11.3 H (3.8-10.6) k/uL Neutrophils # 8.8 H (1.3-7.7) k/uL BUN 6 L (7-17) mg/dL Total Protein 5.4 L (6.3-8.2) g/dL Albumin 2.9 L (3.5-5.0) g/dL Assessment and Plan Plan: 1. Postop day #3 status post lower anterior resection for diverticulitis. Currently on clear liquid diet. Continue with pain control. Followed closely by surgery 2. Acute tracheobronchitis continue the doxycycline patient started outpatient. With mild COPD exacerbation continue nebulizer treatments. Chest x- ray revealing atelectasis. Encourage incentive spirometry use 3. History of essential hypertension: Blood pressures are stable. Patient reports been off of blood pressure medications for a while now 4. History of trigeminal neuralgia 5. Leukocytosis: Possibly reactive to surgery as well as being on prednisone recently. We'll monitor. Follow up on chest x-ray. 6. Generalized anxiety disorder and panic disorder. Resume Xanax GI prophylaxis Pepcid and DVT prophylaxis subcu heparin
--- NOTE | 2016-08-05 11:57 | P.PN ---
Progress Note - Text Patient is postop day 3 post-sigmoid resection for chronic diverticulitis. Coming along fairly well. No nausea or vomiting. Some flatus. Tolerating her liquids. On examination the patient is a overweight vitals are stable. Temperature is normal. Abdomen is soft with usual postoperative tenderness. Incisions look fine. No evidence of any complication. The recommendation. Slowly increase her diet encouraged ambulation..
[2016-08-05] MEDS: FAMOTIDINE 20 MG TAB PO SCH (20:09)
[2016-08-05] MEDS ORDERED: ALVIMOPAN 12 MG CAPSULE ONE (21:00)
[2016-08-06] MEDS ORDERED: HYDROcodone/APAP 7.5-325MG 1 EACH TAB ONE (02:15)
[2016-08-06] MEDS: LACTATED RINGERS 1,000 ML IV SCH (06:37)
[2016-08-06] MEDS: D5-0.45% NACL WITH KCL 20MEQ/L 1,000 ML IV SCH ×3 (06:37→07:52)
[2016-08-06 07:11] LABS: Basophils % (A) 0 %; CHCM 31.6; Eosinophils # (A) 0.8 k/uL (0-0.7); Eosinophils % (A) 8 %; HCT 38.1 % (34.0-46.0); HDW 2.47; Luc # (Auto) 0.08; Luc % (Auto) 1; Lymphocytes # (A) 1.4 k/uL (1.0-4.8); Lymphocytes % (A) 14 %; MCHC 31.5 g/dL (31.0-37.0); Mean Platelet Volume 6.7; Monocytes # (A) 0.6 k/uL (0-1.0); Monocytes % (A) 6 %; Neutrophils # (A) 7.1 k/uL (1.3-7.7); Neutrophils % (A) 71 %; RBC 4.28 m/uL (3.80-5.40); RDW 14.3 % (11.5-15.5); WBC (Perox) 9.99
[2016-08-06 07:33] LABS: ALT 38 U/L (9-52); AST 25 U/L (14-36); Alkaline Phosphatase 46 U/L (38-126); Anion Gap 5 mmol/L; Blood Urea Nitrogen 3 mg/dL (7-17); Calcium 9.1 mg/dL (8.4-10.2); Carbon Dioxide 31 mmol/L (22-30); Chloride 104 mmol/L (98-107); Glucose 92 mg/dL (74-99); Non-African American GFR(MDRD) >60 (>60 ml/min/1.73 sqM); Potassium 4.3 mmol/L (3.5-5.1); Sodium 140 mmol/L (137-145); Total Bilirubin 0.5 mg/dL (0.2-1.3); Total Protein 5.3 g/dL (6.3-8.2)
[2016-08-06] MEDS: SYMBICORT 160-4.5 MCG INHALER INHALATION SCH ×2 (07:42→22:43)
[2016-08-06] MEDS: IPRATROPIUM-ALBUTEROL 3 ML NEB INHALATION SCH ×4 (07:43→22:43)
[2016-08-06] MEDS: guaiFENesin 600 MG TABLET.ER PO SCH ×2 (07:53→21:27)
[2016-08-06] MEDS: DOXYCYCLINE 50 MG CAP PO SCH ×2 (07:53→21:27)
[2016-08-06] MEDS: ALVIMOPAN 12 MG CAPSULE PO SCH ×2 (07:53→21:27)
[2016-08-06] MEDS: HEPARIN SODIUM,PORCINE 5,000 UNIT/ML 1 ML VIAL SQ SCH ×2 (07:53→21:27)
[2016-08-06] MEDS: FAMOTIDINE 20 MG TAB PO SCH ×2 (07:53→21:27)
[2016-08-06] MEDS: HYDROcodone/APAP 7.5-325MG 1 EACH TAB PO PRN ×3 (07:57→21:27)
--- NOTE | 2016-08-06 11:27 | P.PN ---
Progress Note - Text The patient is progressing well. Tolerating her liquid diet. No nausea or vomiting. Had some liquid stools. On examination she is afebrile. Vitals are stable. In no distress. Abdomen is soft obese. GREGORY drain is serosanguineous. Not excessive. Mild postoperative tenderness. Impression. Satisfactory postoperative course. Recommendation soft diet today. Encouraged ambulation. By mouth meds.
--- NOTE | 2016-08-06 14:23 | P.PN ---
Subjective Patient is doing well today. Objective - Vital Signs Vital signs: Vital Signs Temp 97.4 F L 08/06/16 07:00 Pulse 84 08/06/16 07:58 Resp 18 08/06/16 07:00 BP 97/52 08/06/16 07:00 Pulse Ox 93 L 08/06/16 07:00 Intake & Output 08/05/16 08/06/16 08/06/16 18:59 06:59 18:59 Intake Total 1500 Output Total 15 Balance 1485 Intake: Intake, IV Titration 1500 Amount D5-0.45% NaCl with KCl 1500 20Meq/l 1,000 ml @ 125 mls/hr IV .Q8H CHARLES Rx#: [id number] Output: Drainage 15 Right Abdomen 15 Other: # Voids 3 3 2 # Bowel Movements 1 - Exam General: The patient is awake and alert, in no distress Eye: there is normal conjunctiva bilaterally. Neck: The neck is supple, there is no JVD. Cardiovascular: Normal S1-S2, no S3-S4, no murmurs. Respiratory: Lungs clear to auscultation bilaterally Gastrointestinal: Abdomen is soft, nontender Musculoskeletal: There is no pedal edema. Neurological:. Speech is normal. Skin: Skin is warm and dry - Labs CBC & Chem 7: 08/06/16 06:52 08/06/16 06:52 Labs: Abnormal Lab Results - Last 24 Hours (Table) 08/06/16 08/06/16 Range/Units 06:52 06:52 Eosinophils # 0.8 H (0-0.7) k/uL Carbon Dioxide 31 H (22-30) mmol/L BUN 3 L (7-17) mg/dL Total Protein 5.3 L (6.3-8.2) g/dL Albumin 2.9 L (3.5-5.0) g/dL Assessment and Plan Plan: 1. Postop day #4 status post lower anterior resection for diverticulitis. Currently on clear liquid diet. Continue with pain control. Followed closely by surgery 2. Acute tracheobronchitis continue the doxycycline patient started outpatient. With mild COPD exacerbation continue nebulizer treatments. Chest x- ray revealing atelectasis. Encourage incentive spirometry use 3. History of essential hypertension: Patient reports been off of blood pressure medications for a while now 4. History of trigeminal neuralgia 5. Leukocytosis: Possibly reactive to surgery. Resolved 6. Generalized anxiety disorder and panic disorder. on Xanax GI prophylaxis Pepcid and DVT prophylaxis subcu heparin Patient medically cleared for discharge home
[2016-08-06 14:54] VITALS: RESP 16
[2016-08-07] MEDS: HYDROcodone/APAP 7.5-325MG 1 EACH TAB PO PRN ×2 (02:29→08:19)
[2016-08-07] MEDS: IPRATROPIUM-ALBUTEROL 3 ML NEB INHALATION SCH ×3 (07:23→15:35)
[2016-08-07] MEDS: SYMBICORT 160-4.5 MCG INHALER INHALATION SCH (07:23)
[2016-08-07 08:06] LABS: Basophils % (A) 0 %; CH 27.7; CHCM 30.9; Eosinophils # (A) 0.7 k/uL (0-0.7); Eosinophils % (A) 6 %; HCT 39.4 % (34.0-46.0); HDW 2.33; HGB 12.3 gm/dL (11.4-16.0); Hypochromasia Slight; Luc # (Auto) 0.14; Luc % (Auto) 1; Lymphocytes # (A) 1.5 k/uL (1.0-4.8); Lymphocytes % (A) 12 %; MCH 28.2 pg (25.0-35.0); MCHC 31.3 g/dL (31.0-37.0); MCV 90.1 fL (80.0-100.0); Mean Platelet Volume 6.4; Monocytes # (A) 0.6 k/uL (0-1.0); Monocytes % (A) 5 %; Neutrophils # (A) 9.1 k/uL (1.3-7.7); Neutrophils % (A) 75 %; RBC 4.37 m/uL (3.80-5.40); RDW 14.6 % (11.5-15.5); WBC (Perox) 13.05
[2016-08-07] MEDS: ALVIMOPAN 12 MG CAPSULE PO SCH (08:18)
[2016-08-07] MEDS: DOXYCYCLINE 50 MG CAP PO SCH (08:18)
[2016-08-07] MEDS: guaiFENesin 600 MG TABLET.ER PO SCH (08:18)
[2016-08-07] MEDS: FAMOTIDINE 20 MG TAB PO SCH (08:18)
[2016-08-07] MEDS: HEPARIN SODIUM,PORCINE 5,000 UNIT/ML 1 ML VIAL SQ SCH (08:18)
[2016-08-07 09:08] LABS: ALT 36 U/L (9-52); AST 23 U/L (14-36); Alkaline Phosphatase 49 U/L (38-126); Anion Gap 10 mmol/L; Blood Urea Nitrogen 6 mg/dL (7-17); Carbon Dioxide 26 mmol/L (22-30); Chloride 103 mmol/L (98-107); Glucose 92 mg/dL (74-99); Non-African American GFR(MDRD) >60 (>60 ml/min/1.73 sqM); Potassium 4.4 mmol/L (3.5-5.1); Sodium 139 mmol/L (137-145); Total Bilirubin 0.6 mg/dL (0.2-1.3); Total Protein 5.7 g/dL (6.3-8.2)
--- NOTE | 2016-08-07 10:07 | P.PN ---
Subjective status post left total anterior resection for diverticulitis. Patient's pain is controlled. She has been up and ambulating. She is complaining again that she did not get her breathing treatments on time. Chest x-ray completed yesterday showing atelectasis difficult to exclude effusion. Patient reports after breathing treatments or shortness breath has improved she was started again back on her doxycycline for her bronchitis treatment that she had started outpatient. Patient reports improvement in her pain. She is on soft diet. She's having about 3-4 loose stools daily. Denies any chest pain or shortness of breath. Denies any nausea or vomiting. Reports improvement in her cough. White count is up to 12. She's afebrile. Patient had issues with drainage tube yesterday. It was adjusted and is now draining a lot of serosanguineous fluid Objective - Vital Signs Vital signs: Vital Signs Temp 98.0 F 08/06/16 23:00 Pulse 88 08/07/16 07:41 Resp 16 08/06/16 23:00 BP 116/73 08/06/16 23:00 Pulse Ox 92 L 08/07/16 07:25 Intake & Output 08/06/16 08/07/16 08/07/16 18:59 06:59 18:59 Intake Total 900 590 Output Total 15 165 Balance 885 425 Intake: Intake, IV Titration 900 Amount D5-0.45% NaCl with KCl 900 20Meq/l 1,000 ml @ 125 mls/hr IV .Q8H CHARLES Rx#: [id number] Oral 590 Output: Drainage 15 165 Right Abdomen 15 165 Other: # Voids 3 2 - Exam Head normocephalic Neck supple Lungs coarse breath sounds at bases Heart regular rate and rhythm S1-S2, no rub or gallop Abdomen is soft and abdominal binder in place positive bowel sounds. Dressing on incision site is saturated with blood. Drainage tube in place. Extremities no edema Neuro alert and orientated to 3 - Labs CBC & Chem 7: 08/07/16 07:41 08/07/16 07:55 Labs: Abnormal Lab Results - Last 24 Hours (Table) 08/07/16 08/07/16 Range/Units 07:41 07:55 WBC 12.0 H (3.8-10.6) k/uL Neutrophils # 9.1 H (1.3-7.7) k/uL BUN 6 L (7-17) mg/dL Total Protein 5.7 L (6.3-8.2) g/dL Albumin 3.1 L (3.5-5.0) g/dL Assessment and Plan Plan: 1. Postop day #5 status post lower anterior resection for diverticulitis. Currently on soft diet. Await further surgical recommendations. 2. Acute tracheobronchitis continue the doxycycline patient started outpatient. With mild COPD exacerbation continue nebulizer treatments. No need for steroids at this time. Chest x-ray revealing atelectasis. Encourage incentive spirometry use 3. History of essential hypertension: Blood pressures are stable. Patient reports been off of blood pressure medications for a while now 4. History of trigeminal neuralgia 5. Leukocytosis: Possibly related atelectasis. Patient is having about 3 loose stools a day. We'll check stool for C. diff. 6. Generalized anxiety disorder and panic disorder. Resume Xanax GI prophylaxis Pepcid and DVT prophylaxis subcu heparin I performed an examination of the patient and discussed their management with the physician Lockstitch [employer] Edge T[employer] Sewer. I have reviewed the Physician Lock[employer]ch [employer] Edge T[employer] Sewer's notes and agree with the documented findings and plan of care
[2016-08-07 13:12] VITALS: BP 156/72; PULSE 82; TEMP 98.8
--- NOTE | 2016-08-07 15:20 | P.DS ---
Providers Date of admission: 08/02/16 05:48 Expected date of discharge: 08/07/16 Attending physician: Mike Romo Consults: 08/02/16 10:25 Consult Physician Routine Consulting Provider: Nayla Marr Consult Reason/Comments: Medical management Do you want consulting provider notified?: Yes Primary care physician: Jessica Calrk Hospital Course: Patient is a 61-year-old female, patient of Dr. Clark in the outpatient setting , with a medical history significant for chronic diverticulitis presenting to the hospital for elective low anterior resection. Patient tolerated procedure well. Patient did develop acute tracheobronchitis post operatively and was started on doxycycline. Patient also developed loose stools but none on the day of discharge. Patient otherwise had an uneventful postoperative course and was deemed stable for discharge to home with close follow-up in the outpatient setting. Discharge diagnoses: 1. Chronic diverticulitis status post low anterior resection on 08/02/2016. 2. Acute tracheobronchitis. 3. Leukocytosis, suspect secondary to atelectasis. The above impression and plan have been discussed and directed by Dr. Romo. Kurtis LAUREN acting as scribe for Dr. Romo. Pertinent Studies: Chest x-ray Procedures: No anterior resection Patient Condition at Discharge: Good Plan - Discharge Summary New Discharge Prescriptions: Docusate [Colace] 100 mg PO BID #20 capsule Doxycycline [Vibramycin] 100 mg PO BID #6 cap HYDROcodone/APAP 7.5-325MG [Lincoln 7.5-325] 1 tab PO Q6HR PRN #28 tab PRN Reason: Pain guaiFENesin [Mucinex] 1,200 mg PO Q12HR #6 tablet.er Discharge Medication List Albuterol Inhaler [Ventolin Hfa Inhaler] 2 puff INHALATION RT-Q4H PRN 12/08/13 [ History] Fluticasone/Salmeterol [Advair 500-50 Diskus] 2 puff INHALATION RT-BID 12/08/13 [History] Furosemide [Lasix] 20 mg PO Q8HR PRN 12/08/13 [History] Ipratropium/Albuterol Sulfate [Duoneb 0.5 mg-3 mg/3 ml Soln] 3 ml INHALATION RT- Q4H PRN 12/08/13 [History] ALPRAZolam [Xanax] 0.5 mg PO Q8HR PRN 04/27/16 [History] Budesonide [Pulmicort Flexhaler] 2 puff INHALATION RT-BID 04/27/16 [History] Tiotropium 18 Mcg/Puff [Spiriva] 1 puff INHALATION RT-DAILY 04/27/16 [History] Docusate [Colace] 100 mg PO BID #20 capsule 08/04/16 [Rx] HYDROcodone/APAP 7.5-325MG [Lincoln 7.5-325] 1 tab PO Q6HR PRN #28 tab 08/04/16 [ Rx] Doxycycline [Vibramycin] 100 mg PO BID #6 cap 08/07/16 [Rx] guaiFENesin [Mucinex] 1,200 mg PO Q12HR #6 tablet.er 08/07/16 [Rx] Follow up Appointment(s)/Referral(s): Jessica Clark MD [Primary Care Provider] - 08/14/16 9:15 am Mike Romo MD [STAFF PHYSICIAN] - 08/15/16 1:30 pm Patient Instructions/Handouts: Baljinder-Lr Drain Care (DC), Colectomy (DC), Staple Care (DC) Activity/Diet/Wound Care/Special Instructions: No heavy lifting, pushing, or pulling items greater than 10 pounds. Soft diet Shower daily, no soaking in bath tubs, pools, or hot tubs. No driving while taking pain medication. Notify surgeon with any signs or symptoms of infection, increased pain, or not tolerating diet. Discharge Disposition: HOME SELF-CARE
--- NOTE | 2016-09-08 13:10 | P.OP ---
Date of Procedure: 08/02/16 Preoperative Diagnosis: Diverticulitis Postoperative Diagnosis: Diverticulitis Adhesions Procedure(s) Performed: Low anterior section Takedown of splenic flexure Lysis of adhesions Implants: Anesthesia: GENAROA Surgeon: Mike Romo Estimated Blood Loss (ml): 50 Pathology: other (Sigmoid:) Condition: stable Disposition: PACU Indications for Procedure: Operative Findings: Description of Procedure: Patient was placed the operative table in the supine position. She received general anesthesia. The patient then placed in dorsal lithotomy position her abdomen was prepped and draped usual sterile fashion. A low midline skin incision was made. The abdomen was entered. There adhesions to the anterior abdominal wall. These were lysed with sharp dissection. The sigmoid colon appeared to be grossly inflamed. The white line of Toldt was divided in the left colon was mobilized. The splenic flexure was mobilized by dividing the adhesions between the spleen and colon. The LigaSure device is used to take down the splenic flexure. At this point the descending colon was transected with a GI stapler. And then the pursestring device applied on the stapler. The staple area of the colon was then opened and then the 25 mm EEA anvil was placed into the colon and secured with the pursestring. Next the mesentery of the sigmoid colon was divided using the LigaSure device. And then the rectum was transected with the contour stapler. The EEA stapler was then used to create the anastomosis. The spike of the stapler is then driven through the stapler the rectum and then the anvil was connected the stapler. Stapler then closed and fired. The stapler was then withdrawn. There were 2 intact tissue rings. The colon was then insufflated with air via a rigid sigmoidoscope there is known to any extravasation. At this point there was area. The shows closed loop #1 PDS suture. Skin was closed oswaldo. Patient was sent to recovery in stable condition.
== END 2016-08-07 16:44 | disposition home or self-care (01) | DRG 330 ==
LOC: 2ORWHC 05:48 → 3SUR 11:21
PROVIDERS: ADMIT Surgery; ATTEND Surgery
PROC: 0DTG0ZZ Resection of Left Large Intestine, Open Approach (ICD-10-PCS; principal; 2016-08-02 07:40)
DX: K57.92 Diverticulitis of intestine, part unspecified, without perforation or abscess without bleeding (principal); J44.0 Chronic obstructive pulmonary disease with (acute) lower respiratory infection; Z99.81 Dependence on supplemental oxygen; J98.11 Atelectasis; G40.909 Epilepsy, unspecified, not intractable, without status epilepticus; M19.91 Primary osteoarthritis, unspecified site; I10 Essential (primary) hypertension; J20.9 Acute bronchitis, unspecified; F41.1 Generalized anxiety disorder; F41.0 Panic disorder [episodic paroxysmal anxiety]; Z87.891 Personal history of nicotine dependence; Z89.429 Acquired absence of other toe(s), unspecified side; Z96.651 Presence of right artificial knee joint; Z98.1 Arthrodesis status; Z86.010 Personal history of colon polyps; Z85.828 Personal history of other malignant neoplasm of skin; Z90.49 Acquired absence of other specified parts of digestive tract; Z90.710 Acquired absence of both cervix and uterus; Z79.51 Long term (current) use of inhaled steroids; Z79.52 Long term (current) use of systemic steroids; Z79.899 Other long term (current) drug therapy; Z88.6 Allergy status to analgesic agent; Z88.1 Allergy status to other antibiotic agents; Z88.8 Allergy status to other drugs, medicaments and biological substances; Z80.0 Family history of malignant neoplasm of digestive organs
CPT/HCPCS: 71020; 80048; 80053; 84132; 85025; 86850; 86900; 86901; 88305; 88307; 94640; 94760

== ENCOUNTER 2017-11-23 10:47 | Day surgery (SDC) | payer MEDICARE, OTHER ==
[2017-11-20 11:35] VITALS: BMI 53.1
[~2017-11-23 10:47] MED LIST changes: +ALBUTEROL NEB (CONC) 2.5 MG/0.5 ML INHALATION ONE; +ATROPINE SULFATE 0.4 MG/ML 1 ML VIAL IM ONE; -DEXAMETHASONE SOD PHOSPHATE 10 MG/ML 1 ML VIAL IV ONE; -HEPARIN SODIUM,PORCINE 5,000 UNIT/ML 1 ML VIAL SQ ONE; +LACTATED RINGERS 1,000 ML IV SCH; -LIDOCAINE 1% 20 ML VIAL (10MG/ML) FOR IV START INTRADERMA PRN; +LIDOCAINE 2% (PF) 20 MG/ML 2 ML AMP INHALATION ONE; +LIDOCAINE VISCOUS 2% 15 ML CUP TOPICAL ONE; -MIDAZOLAM 2 MG/2 ML VIAL IV PRN; -ONDANSETRON 4 MG/2 ML VIAL IVP ONE; -SCOPOLAMINE 1.5MG/72HR PATCH TRANSDERM ONE; -ceFAZolin 3 GM in SODIUM CHLORIDE 0.9% 100 ML IVPB ONE; -metroNIDAZOLE-NS PMX 500 MG in SALINE 1 100ML.BAG IVPB ONE
[2017-11-23 10:59] VITALS: TEMP 98.5
[2017-11-23] MEDS ORDERED: LIDOCAINE 1% 20 ML VIAL (10MG/ML) FOR IV START INTRADERMA ONE (11:26)
[2017-11-23] MEDS: LACTATED RINGERS 1,000 ML IV ONE ×2 (11:26→11:51)
[2017-11-23 11:28] LABS: Glucose,Whole Blood 117 mg/dL (75-99)
[2017-11-23] MEDS ORDERED: PROPOFOL 10 MG/ML 20 ML VIAL IV ONE (11:55)
[2017-11-23] MEDS ORDERED: fentaNYL (PF) 50 MCG/ML 2 ML AMP ONE (11:55)
[2017-11-23] MEDS ORDERED: LIDOCAINE 1% INJ 10MG/ML (20 ML MDV) ONE (11:55)
[2017-11-23] MEDS ORDERED: KETAMINE 10 MG/ML 20 ML VIAL ONE (11:55)
[2017-11-23] MEDS ORDERED: MIDAZOLAM 2 MG/2 ML VIAL ONE (11:55)
[2017-11-23] MEDS ORDERED: LIDOCAINE 2% INJ 20 MG/ML INTRATRACH ONE ×2 (12:03→12:09)
[2017-11-23 13:03] VITALS: BP 106/63
[2017-11-23 13:29] VITALS: PULSE 118; RESP 24
--- NOTE | 2017-11-23 13:50 | PCN ---
PROCEDURE NOTE This is a 62-year-old female who underwent bronchoscopy. BAL right middle lobe, airway exam, therapeutic lavage. PREOPERATIVE DIAGNOSIS: Retained secretions. COPD and asthma. POSTOPERATIVE DIAGNOSIS: Retained secretions. COPD and asthma. DIRECTOR NURSING SERVICE: Dr. Buitrago The [employer] INSTRUCTOR provided general anesthesia or unconscious sedation. The patient's procedure was done in room #1. There was informed consent. There was universal timeout. After the patient was adequately sedated and being fully monitored, the bronchoscope was inserted through the right nostril. It passed through the right nasopharynx into the oropharynx. The hypopharynx was identified and topicalized. The hypopharyngeal structures including anterior commissure, true cords, false cords, arytenoids, piriform sinuses, right and left vallecula and epiglottis all appeared normal. The airway was crowded. There was no lesion or mass. There were minimal secretions in the hypopharynx. After topicalization, bronchoscope was pushed through the glottic opening into the trachea. Trachea was very collapsible. Tracheal otto was sharp. There was some minimal secretions noted throughout the trachea. The trachea was also a bit inflamed and erythematous. The right upper lobe and its 3 segments, right middle lobe and its 2 segments, the right lower lobe and its 5 segments, the left upper lobe proper and its 2 segments, the lingula and its 2 segments and the left lower lobe and its 4 segments all had similar findings of diffuse bronchitis. There was diffuse erythema and hyperemia. The airways were quite inflamed. There was mucosal friability. They bled easily. There was no dominant mass or tumor. There was collapsibility of the airways. The bronchoscope was then positioned into the right middle lobe. The BAL took place. Patient tolerated that part of the procedure well. Next, saline was instilled in other segments of the lung to remove any airway secretions. The patient tolerated that procedure as well. The bronchoscope withdrawn. The patient will be recovered. MMODL / IJN: [id number] /
[2017-11-23 18:23] LABS: Appearance,BF Bloody; Nucleated Cells, Body Fluid 20 /uL; RBC, Body Fluid 12600 /uL
[2017-11-23 18:27] LABS: Mononuclear WBC,Body Fluid 33 %; Polynuclear WBC,Body Fluid 66 %; Total Cells Counted,Body Fluid 100
== END 2017-11-23 13:45 | disposition home or self-care (01) ==
LOC: ORWHC2ENDO 10:47
PROVIDERS: ATTEND Internal Medicine Critical Care Medicine
DX: J44.9 Chronic obstructive pulmonary disease, unspecified (principal); Z88.6 Allergy status to analgesic agent; Z88.8 Allergy status to other drugs, medicaments and biological substances; Z88.1 Allergy status to other antibiotic agents; I10 Essential (primary) hypertension; Z87.891 Personal history of nicotine dependence; Z99.81 Dependence on supplemental oxygen; E66.9 Obesity, unspecified; Z79.52 Long term (current) use of systemic steroids; Z79.51 Long term (current) use of inhaled steroids; Z79.899 Other long term (current) drug therapy; Z68.43 Body mass index [BMI] 50.0-59.9, adult
CPT/HCPCS: 31624; 94640; 87798 ×3; 87496; 87498; 87529; 88108; 88305; 89050; 87252; 87502; 87634; 87070; 87205; 87116; 87102; 87206; J2001 ×3; J2250; J0461; J3010; J2704